=== PATIENT | female | born 1980 | race Caucasian/White ===

== ENCOUNTER → 2017-10-01 | Outpatient (CLI) | payer OTHER ==
[~2017-10-01] MED LIST: ALPR-429 PO; BUPR-124 PO; BUPR-156 PO; CYCL10TA29 PO; FLUT9.9S; LORA-1455 PO; LORA-802 PO; MAG-66 PO; NAPR-724 PO; OMEP-125 PO; SERT-1 PO; SUMA50TA34 PO; TRAM-420 PO; VAR05PT PO
[2017-10-01 10:38] LABS: PLATELET COUNT, AUTOMATED 297 K/uL (150-450)
== END ==
LOC: LAB 10:05
PROVIDERS: ATTEND Nurse Practitioner Primary Care
DX: R10.2 Pelvic and perineal pain (principal)
CPT/HCPCS: 36415; 81001; 82040; 82247; 82310; 82374; 82435; 82565; 82947; 84075; 84132; 84155; 84295; 84450; 84460; 84520; 84703; 85025

== ENCOUNTER 2018-03-01 06:24 | Emergency (ER) | payer OTHER ==
[~2018-03-01 06:24] MED LIST changes: -NAPR-724 PO; +NAPR500T31 PO
--- NOTE | 2018-03-01 06:30 | ER Report ---
History and Physical Time Seen By MD: 06:27 HPI/ROS CHIEF COMPLAINT: Lip swelling HISTORY OF PRESENT ILLNESS: 37-year-old female presents ambulatory to the ER complaining of lip swelling and burning to her right lower lips and mouth. Patient reports she's been sick with upper respiratory infection, clear rhinitis and, dry cough, she denies fevers. She notes no new medication. She does take omeprazole for acid reflux. She notes no tongue swelling. But she does note significant right lower lip swelling. She denies a history of fever blisters or cold sores. She notes no difficulty swallowing. She notes no difficulty breathing. REVIEW OF SYSTEMS: Respiratory: No cough, no dyspnea. Cardiovascular: No chest pain, no palpitations. Gastrointestinal: No vomiting, no abdominal pain. Musculoskeletal: No back pain. Allergies: Coded Allergies: No Known Drug Allergies (Unverified , 03/01/18) Home Meds Active Scripts Prednisone 10 Mg Tab (PREDNISONE 10 MG TAB) 10 Mg Tablet, 10 MG PO QDAY Y for reduce swelling, #6 2 tabs daily for 2 days 1 tab daily for 2 days Prov:NENITA LINARES DO 03/01/18 Acyclovir (ACYCLOVIR) 400 Mg Tablet, 400 MG PO TID for herpes lip infection, # 21 TAB Prov:NENITA LINARES DO 03/01/18 Discontinued Scripts Tramadol Hcl (TRAMADOL HCL) 50 Mg Tablet, 1-2 TAB PO Q6-8H Y for PAIN, #20 TAB 0 Refills Prov:YOVANY LOGAN DNP, FNP- 10/01/17 Alprazolam (XANAX) 0.5 Mg Tablet, 0.5-1 TAB PO TID, #30 TAB 1 Refill Prov:YOVANY LOGAN DNP, FNP- 10/01/17 Sertraline Hcl (ZOLOFT) 50 Mg Tablet, 1 TAB PO QDAY, #90 TAB 1 Refill Prov:YOVANY LOGAN DNP, FNP- 10/01/17 Omeprazole (OMEPRAZOLE) 20 Mg Capsule.dr, 1 CAP PO QDAY, #90 CAP 1 Refill Prov:YOVANY LOGAN DNP [facility]- 10/01/17 Reviewed Nurses Notes: Yes Old Medical Records Reviewed: Yes Smoking Status: Current: Every Day Smoker Constitutional Vital Sign - Last 24 Hours 03/01/18 03/01/18 06:29 07:20 Temp 98.2 Pulse 73 81 Resp 12 20 B/P (MAP) 140/82 132/78 (96) Pulse Ox 96 94 O2 Delivery Room Air Room Air Physical Exam General Appearance: The patient is alert, has no immediate need for airway protection and no current signs of toxicity. Vital signs stable, afebrile, pulse ox normal HEENT: Pupils equal and round no injection. TMs normal, oropharynx with mild erythema, no exudate, mild tonsillar hypertrophy, close examination of the right lower lip reveals significant edema. There are no obvious vesicles noted. There is some erythema Respiratory: Chest is non tender, lungs are clear to auscultation. No wheezing Cardiac: regular rate and rhythm Gastrointestinal: Abdomen is soft and non tender, no masses, bowel sounds normal. Musculoskeletal: Neck: Neck is supple and non tender. Extremities have full range of motion and are non tender. Skin: No rashes or lesions. DIFFERENTIAL DIAGNOSIS: After history and physical exam differential diagnosis was considered for angioedema, allergic reaction, herpes simple virus, Medical Decision Making ED Course/Re-evaluation ED Course Patient was minute to an examination room. H&P was done. The differential diagnoses was considered. Patient with gross right lower lip swelling. There is no vesicular eruptions noted to suggest herpes. I think patient suffering angioedema. She'll be placed on prednisone, Benadryl and see if she has improvement. She'll also be covered with acyclovir in case this is an occult herpes Symplex infection. It's going to break out with fever blisters in the next few days. Patient also advised to take ibuprofen. Patient advised to follow-up with plasma table operator for evaluation of angioedema. Decision to Disposition Date: Mar 01, 2018 Decision to Disposition Time: 07:32 Depart Departure Latest Vital Signs Vital Signs Date Time Temp Pulse Resp B/P (MAP) Pulse Ox O2 Delivery O2 Flow Rate FiO2 03/01/18 07:20 81 20 132/78 (96) 94 Room Air 03/01/18 06:29 98.2 Impression: Primary Impression: Lip swelling Additional Impression: Viral URI Condition: Improved Disposition: HOME OR SELF-CARE Referrals: YOVANY LOGAN DNP, [facility] (PCP) New Scripts Prednisone 10 Mg Tab (PREDNISONE 10 MG TAB) 10 Mg Tablet 10 MG PO QDAY Y for reduce swelling, #6 2 tabs daily for 2 days 1 tab daily for 2 days Prov: NENITA LINARES DO 03/01/18 Acyclovir (ACYCLOVIR) 400 Mg Tablet 400 MG PO TID for herpes lip infection, #21 TAB Prov: NENITA LINARES DO 03/01/18 Patient Instructions: Angioedema (ED) Additional Instructions: Follow-up with one of the allergists listed below Danilo Johnson MD [id number] [facility] [address] [facility] [address] Problem Qualifiers NENITA LINARES DO Mar 01, 2018 06:30
[2018-03-01] MEDS ORDERED: predniSONE 20 MG TAB PO ONE (06:35)
[2018-03-01] MEDS ORDERED: hydrOXYzine 25 MG TAB PO ONE (06:35)
[2018-03-01] MEDS ORDERED: ACYC-50 PO (06:49)
[2018-03-01] MEDS ORDERED: PRED-1 PO (06:49)
[2018-03-01 07:20] VITALS: BP 132/78
[2018-03-03] MEDS ORDERED: MUPI15CR2 TP (10:56)
[2018-03-03] MEDS ORDERED: Work Note (10:56)
== END 2018-03-01 07:21 | disposition home or self-care (01) ==
LOC: ER 06:31
DX: J06.9 Acute upper respiratory infection, unspecified (principal); M79.89 Other specified soft tissue disorders
CPT/HCPCS: 99283; J7512

== ENCOUNTER → 2018-11-24 | Outpatient (CLI) | payer OTHER ==
[~2018-11-24] MED LIST changes: +ACYC-50 PO; +MUPI15CR2 TP; +PRED-1 PO; +PRED20TA6 PO; +VALA500T63 PO; +Work Note
== END ==
LOC: LAB 11:48
PROVIDERS: ATTEND Nurse Practitioner Primary Care
DX: R30.9 Painful micturition, unspecified (principal)
CPT/HCPCS: 81001